=== PATIENT | male | born 1995 | race Caucasian/White ===

== ENCOUNTER 2017-08-30 15:27 | Emergency (ER) | payer OTHER ==
[2017-08-30] MEDS ORDERED: LIDOCAINE 2% MDV 20 ML VIAL As Ordered (17:01)
[2017-08-30] MEDS: LIDOCAINE 2% MDV 20 ML VIAL SC (17:09)
== END 2017-08-30 18:19 | disposition home or self-care (01) ==
LOC: M ED 15:27
DX: S61.011A Laceration without foreign body of right thumb without damage to nail, initial encounter (principal); W26.0XXA Contact with knife, initial encounter; Y92.89 Other specified places as the place of occurrence of the external cause
CPT/HCPCS: 12001

== ENCOUNTER 2018-05-28 06:37 | Emergency (ER) | payer OTHER | END 2018-05-28 07:10 | disposition home or self-care (01) | LOC: M ED 06:37 | DX: H60.11 Cellulitis of right external ear (principal) | CPT/HCPCS: 99282 ==